=== PATIENT | male | born 1995 | race Caucasian/White ===

== ENCOUNTER 2020-12-22 17:41 | Emergency (ER) | payer MEDICAID ==
[~2020-12-22] VITALS: Ht 165.1 cm; Wt 73.0 kg
[2020-12-22 17:47] VITALS: BP 119/72
== END 2020-12-22 21:27 | disposition left against medical advice (07) ==
LOC: ER 17:41
DX: H57.89 Other specified disorders of eye and adnexa (principal); Z53.21 Procedure and treatment not carried out due to patient leaving prior to being seen by health care provider